=== PATIENT | female | born 1995 | race Caucasian/White ===

== ENCOUNTER 2018-01-19 00:10 | Emergency (ER) | payer MEDICAID ==
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
== END 2018-01-19 01:05 | disposition home or self-care (01) ==
LOC: ER 00:10
DX: S13.9XXA Sprain of joints and ligaments of unspecified parts of neck, initial encounter (principal); S33.5XXA Sprain of ligaments of lumbar spine, initial encounter; V49.9XXA Car occupant (driver) (passenger) injured in unspecified traffic accident, initial encounter; Y93.89 Activity, other specified; Y92.89 Other specified places as the place of occurrence of the external cause; Y99.8 Other external cause status
CPT/HCPCS: Z7502

== ENCOUNTER 2018-06-19 22:33 | Emergency (ER) | payer MEDICAID ==
--- NOTE | 2018-07-02 20:24 | ER Physician Documentation ---
DATE OF SERVICE: 06/19/2018 DATE OF ARRIVAL: 06/19/2018 HISTORY OF PRESENT ILLNESS: A 22-year-old female who comes in with cough, congestion. PAST MEDICAL HISTORY: Otherwise negative. MEDICATIONS: No medications. ALLERGIES: No allergies. PAST SURGICAL HISTORY: No surgeries. PHYSICAL EXAMINATION: VITAL SIGNS: Stable, afebrile. GENERAL: The patient is awake, alert. HEENT: Pupils equal, reactive to light. NECK: Supple. HEART: Regular rate and rhythm. LUNGS: Clear. ABDOMEN: Soft. EXTREMITIES: Full range of motion. DIAGNOSES: Cough, congestion, bronchitis. PLAN: The patient was given Z-Akil. She was discharged back to home to follow up with PMD. JOB# [id number]
== END 2018-06-20 00:32 | disposition home or self-care (01) ==
LOC: ER 22:33
DX: J40 Bronchitis, not specified as acute or chronic (principal)
CPT/HCPCS: Z7502

== ENCOUNTER 2019-03-05 20:33 | Emergency (ER) | payer MEDICAID ==
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
--- NOTE | 2019-03-06 09:48 | Diagnostic Imaging Report ---
Head CT without intravenous contrast Indication: Fall Comparison: None Technique: Axial images were obtained from the vertex to the skull base without IV contrast. Coronal reconstructions were made. Total DLP: 650, CTDI37.7 FINDINGS: Images of the brain obtained without contrast demonstrate no evidence of an acute hemorrhage. The cooper-white matter differentiation is preserved. The ventricles and basal cisterns are patent. No mass effect or midline shift. No evidence of a skull fracture or focal soft tissue swelling. IMPRESSION: No acute intracranial abnormality.
--- NOTE | 2019-03-06 09:52 | Diagnostic Imaging Report ---
CT facial bones without IV contrast HISTORY: All, chin injury COMPARISON: Head on 03/05/2019 TECHNIQUE: axial images of the facial bones were obtained without IV contrast. Reconstructions were made. Total DLP 399 CTD I 20 FINDINGS: Right nasal ring and lip ring are noted. The bilateral orbital floors are intact. The globes and intraconal Compartments are intact. The bilateral zygomatic arches are intact. There is mild deviation of the nasal septum to the left side. There is mild mucosal thickening of paranasal sinuses. No air-fluid levels identified. The bilateral mandibular condyles are intact. There is mild soft tissue swelling seen along the right mandibular right facial region. Mild subcutaneous edema seen in this region. IMPRESSION: Mild soft tissue swelling along the right mandibular and right facial region region with mild subcutis edema. No evidence of an acute fracture.
== END 2019-03-05 22:24 | disposition home or self-care (01) ==
LOC: ER 20:33
DX: S80.01XA Contusion of right knee, initial encounter (principal); S00.83XA Contusion of other part of head, initial encounter; H93.19 Tinnitus, unspecified ear; H66.90 Otitis media, unspecified, unspecified ear; W18.39XA Other fall on same level, initial encounter; Y93.89 Activity, other specified; Y92.89 Other specified places as the place of occurrence of the external cause; Y99.8 Other external cause status
CPT/HCPCS: 70450-TC; 70486-TC; 81025-TC